=== PATIENT | female | born 1985 | race Caucasian/White ===

== ENCOUNTER 2017-12-28 17:37 | Outpatient (CLI) | payer OTHER ==
[2017-12-28 19:17] LABS: RUPTURE FETAL MEMBRANES NEGATIVE (NEGATIVE)
== END 2017-12-28 21:13 | disposition home or self-care (01) ==
LOC: OBT 17:37 → L-D 17:38 → OBT 21:13
DX: O47.00 False labor before 37 completed weeks of gestation, unspecified trimester (principal); Z3A.37 37 weeks gestation of pregnancy
CPT/HCPCS: 76817; 76818; 82731; 84112

== ENCOUNTER 2018-01-16 20:17 | Outpatient (CLI) | payer OTHER ==
[2018-01-16 22:11] LABS: ADD UMIC YES; UR ASCORBIC ACID NEGATIVE (NEGATIVE); UR BACTERIA FEW /HPF (NONE SEEN); UR BILIRUBIN (Dip) NEGATIVE (NEGATIVE); UR BLOOD (Dip) NEGATIVE (NEGATIVE); UR CLARITY SLIGHTLY CLOUDY (CLEAR); UR COLOR YELLOW (YELLOW); UR GLUCOSE (Dip) NEGATIVE (NEGATIVE); UR KETONES (Dip) NEGATIVE (NEGATIVE); UR LEUKOCYTE ESTERASE (Dip) 2+ Leu/ul (NEGATIVE); UR NITRITE (Dip) NEGATIVE (NEGATIVE); UR RBC 1 /HPF (0-5); UR SPECIFIC GRAVITY (Dip) 1.016 (1.003-1.030); UR SQUAMOUS EPITHELIAL CELL MANY /HPF (FEW); UR TOTAL PROTEIN (Dip) NEGATIVE (NEGATIVE); UR UROBILINOGEN (Dip) NEGATIVE (NEGATIVE); UR WBC 5 /HPF (0-5)
== END 2018-01-17 00:25 | disposition home or self-care (01) ==
LOC: OBT 20:17 → L-D 20:18
DX: Z3A.34 34 weeks gestation of pregnancy (principal)
CPT/HCPCS: 76817; 76818; 81001; 87086

== ENCOUNTER 2018-01-27 05:55 | Outpatient (CLI) | payer OTHER ==
[2018-01-27 07:30] LABS: ADD UMIC NO; UR ASCORBIC ACID 20 mg/dL (NEGATIVE); UR BACTERIA FEW /HPF (NONE SEEN); UR BILIRUBIN (Dip) NEGATIVE (NEGATIVE); UR BLOOD (Dip) NEGATIVE (NEGATIVE); UR CLARITY SLIGHTLY CLOUDY (CLEAR); UR COLOR YELLOW (YELLOW); UR GLUCOSE (Dip) 1+ mg/dL (NEGATIVE); UR KETONES (Dip) NEGATIVE (NEGATIVE); UR LEUKOCYTE ESTERASE (Dip) NEGATIVE Leu/ul (NEGATIVE); UR NITRITE (Dip) NEGATIVE (NEGATIVE); UR RBC 1 /HPF (0-5); UR SPECIFIC GRAVITY (Dip) 1.017 (1.003-1.030); UR SQUAMOUS EPITHELIAL CELL FEW /HPF (FEW); UR TOTAL PROTEIN (Dip) NEGATIVE (NEGATIVE); UR UROBILINOGEN (Dip) NEGATIVE (NEGATIVE); UR WBC 2 /HPF (0-5)
[2018-01-27 10:10] LABS: RUPTURE FETAL MEMBRANES NEGATIVE (NEGATIVE)
== END 2018-01-27 11:10 | disposition home or self-care (01) ==
LOC: OBT 05:55 → L-D 05:55 → OBT 11:10
DX: O36.8130 Decreased fetal movements, third trimester, not applicable or unspecified (principal); Z3A.36 36 weeks gestation of pregnancy
CPT/HCPCS: 76818; 81001; 81003; 84112; 87086

== ENCOUNTER 2018-01-29 05:50 | Outpatient (CLI) | payer OTHER | END 2018-01-29 08:10 | disposition home or self-care (01) | LOC: OBT 05:50 → L-D 05:51 → OBT 08:10 | DX: O24.419 Gestational diabetes mellitus in pregnancy, unspecified control (principal); Z3A.36 36 weeks gestation of pregnancy | CPT/HCPCS: 76818 ==

== ENCOUNTER 2018-02-05 13:30 | Outpatient (CLI) | payer OTHER | END 2018-02-05 15:15 | disposition home or self-care (01) | LOC: OBT 13:30 → L-D 13:32 → OBT 15:15 | DX: O24.419 Gestational diabetes mellitus in pregnancy, unspecified control (principal); O36.8330 Maternal care for abnormalities of the fetal heart rate or rhythm, third trimester, not applicable or unspecified; Z3A.37 37 weeks gestation of pregnancy | CPT/HCPCS: 76818; 82962 ==

== ENCOUNTER 2018-02-08 05:40 | Outpatient (CLI) | payer OTHER ==
[2018-02-08 07:25] LABS: ADD UMIC NO; UR ASCORBIC ACID NEGATIVE (NEGATIVE); UR BILIRUBIN (Dip) NEGATIVE (NEGATIVE); UR BLOOD (Dip) NEGATIVE (NEGATIVE); UR CLARITY CLEAR (CLEAR); UR COLOR YELLOW (YELLOW); UR GLUCOSE (Dip) NEGATIVE (NEGATIVE); UR KETONES (Dip) NEGATIVE (NEGATIVE); UR LEUKOCYTE ESTERASE (Dip) NEGATIVE Leu/ul (NEGATIVE); UR NITRITE (Dip) NEGATIVE (NEGATIVE); UR SPECIFIC GRAVITY (Dip) 1.016 (1.003-1.030); UR TOTAL PROTEIN (Dip) NEGATIVE (NEGATIVE); UR UROBILINOGEN (Dip) NEGATIVE (NEGATIVE)
== END 2018-02-08 08:00 | disposition home or self-care (01) ==
LOC: OBT 05:40 → L-D 05:40 → OBT 08:00
DX: O24.419 Gestational diabetes mellitus in pregnancy, unspecified control (principal); O36.8330 Maternal care for abnormalities of the fetal heart rate or rhythm, third trimester, not applicable or unspecified; Z3A.37 37 weeks gestation of pregnancy
CPT/HCPCS: 76818; 81003; 87086

== ENCOUNTER 2018-02-10 05:50 | Outpatient (CLI) | payer OTHER | END 2018-02-10 07:56 | disposition home or self-care (01) | LOC: OBT 05:50 → L-D 05:50 → OBT 07:56 | DX: O24.419 Gestational diabetes mellitus in pregnancy, unspecified control (principal); O36.8330 Maternal care for abnormalities of the fetal heart rate or rhythm, third trimester, not applicable or unspecified; Z3A.38 38 weeks gestation of pregnancy | CPT/HCPCS: 76818 ==

== ENCOUNTER 2018-02-13 14:58 | Inpatient (IN) | payer OTHER ==
[2018-02-13] MEDS: LACTATED RINGER'S 1,000 ML IV* ×2 (01:00→16:53)
[2018-02-13] MEDS ORDERED: LACTATED RINGER'S 1,000 ML IV (15:37)
[2018-02-13] MEDS ORDERED: CARBOPROST 250 MCG INJ IM (16:00)
[2018-02-13] MEDS ORDERED: OXYTOCIN 30 UNITS/LR 500 ML IV ×2 (16:00)
[2018-02-13] MEDS ORDERED: LIDOCAINE 1% (MPF) 30 ML INJ INJ (16:00)
[2018-02-13] MEDS ORDERED: BUTORPHANOL 2 MG INJ IV (16:00)
[2018-02-13] MEDS ORDERED: IBUPROFEN 600 MG TAB PO (16:00)
[2018-02-13] MEDS ORDERED: METHYLERGONOVINE 0.2 MG INJ IM (16:00)
[2018-02-13] MEDS ORDERED: BUTORPHANOL 1 MG INJ IV (16:00)
[2018-02-13] MEDS ORDERED: MISOPROSTOL 200 MCG TAB PR (16:00)
[2018-02-13 16:08] LABS: ADD MAN DIFF? NO
[2018-02-13 16:10] LABS: BASOPHILS % 0.4 % (0.0-2.0); EOSINOPHILS # 0.1 10^3/ul (0.0-0.5); EOSINOPHILS % 0.7 % (0.0-7.0); HEMATOCRIT 39.5 % (37.0-47.0); LYMPHOCYTES # 1.6 10^3/ul (0.8-2.9); LYMPHOCYTES % 14.9 % (15.0-51.0); MEAN CORPUSCULAR HEMOGLOBIN 26.2 pg (29.0-33.0); MEAN CORPUSCULAR HGB CONC 32.9 g/dl (32.0-37.0); MEAN CORPUSCULAR VOLUME 79.5 fl (82.0-101.0); MEAN PLATELET VOLUME 9.2 fl (7.4-10.4); MONOCYTE # 0.8 10^3/ul (0.3-0.9); MONOCYTES % 7.7 % (0.0-11.0); NEUTROPHIL # 8.1 10^3/ul (1.6-7.5); NEUTROPHILS % 75.6 % (39.0-77.0); PLATELET COUNT 379 10^3/UL (140-415); RED BLOOD COUNT 4.97 10^6/ul (4.20-5.40)
[2018-02-13 16:10] LABS: WHITE BLOOD COUNT 10.7 10^3/ul (4.8-10.8)
[2018-02-13 16:30] LABS: INR 0.94; PARTIAL THROMBOPLASTIN TIME 27.1 Sec (25.0-35.0); PROTIME 12.7 Sec (11.9-14.9)
[2018-02-13 16:37] LABS: GLUCOSE 81 mg/dl (70-220)
[2018-02-13] MEDS: AMPICILLIN 2 GM/NS (PMX) 100 ML IV (16:53)
[2018-02-13 16:58] LABS: HEPATITIS B SURFACE ANTIGEN NEGATIVE (NEGATIVE)
[2018-02-13] MEDS ORDERED: KETOROLAC 30 MG INJ IV (17:30)
[2018-02-13] MEDS ORDERED: FENTAnyl 2MCG/ML-ROPIV 0.2% 100 ML BAG EPI (17:30)
[2018-02-13] MEDS ORDERED: NALOXONE (0.4 MG/ML) INJ IV (17:30)
[2018-02-13] MEDS ORDERED: ONDANSETRON 4 MG INJ IV (17:30)
[2018-02-13] MEDS ORDERED: HYDROmorphONE 0.5 MG/0.5 ML SYG IV ×2 (17:30)
[2018-02-13] MEDS ORDERED: DIPHENHYDRAMINE 50 MG INJ IV (17:30)
[2018-02-13] MEDS ORDERED: ZOLPIDEM 5 MG TAB PO (17:30)
[2018-02-13 17:35] LABS: RAPID PLASMA REAGIN NONREACTIVE (NR)
[2018-02-13] MEDS: DEXTROSE 5%-LR 1,000 ML IV (20:23)
[2018-02-13] MEDS: AMPICILLIN 1 GM/NS (PMX) 50 ML IV (21:04)
[2018-02-13] MEDS: OXYTOCIN 30 UNITS/LR 500 ML IV ×2 (23:04→23:21)
[2018-02-14] MEDS ORDERED: SENNA/DOCUSATE NA (8.6MG/50MG) TAB PO
[2018-02-14] MEDS ORDERED: HYDROCODONE/APAP (5/325) TAB PO
[2018-02-14] MEDS ORDERED: CARBOPROST 250 MCG INJ IM
[2018-02-14] MEDS ORDERED: ONDANSETRON 4 MG TAB PO
[2018-02-14] MEDS ORDERED: DIBUCAINE 1% 30 GM OINT PR
[2018-02-14] MEDS ORDERED: DIPHENHYDRAMINE 25 MG CAP PO
[2018-02-14] MEDS ORDERED: MISOPROSTOL 200 MCG TAB PR
[2018-02-14] MEDS ORDERED: METHYLERGONOVINE 0.2 MG INJ IM
[2018-02-14] MEDS ORDERED: OXYTOCIN 30 UNITS/LR 500 ML IV
[2018-02-14] MEDS ORDERED: ACETAMINOPHEN 325 MG TAB PO ×2
[2018-02-14] MEDS ORDERED: NA PHOSPHATE/BIPHOS 133 ML ENEMA PR
[2018-02-14] MEDS ORDERED: DIPHENHYDRAMINE 50 MG INJ IV
[2018-02-14] MEDS ORDERED: ONDANSETRON 4 MG INJ IV
[2018-02-14] MEDS: LACTATED RINGER'S 1,000 ML IV* ×3 (03:25→21:40)
[2018-02-14] MEDS: BENZOCAINE 20% 56 ML SPRAY TOP (04:50)
[2018-02-14] MEDS: HYDROCODONE/APAP (5/325) TAB PO ×3 (04:51→19:40)
[2018-02-14] MEDS: LANOLIN 7 GM TUBE TOP (04:51)
[2018-02-14] MEDS: WITCH HAZEL/GLYCERIN PAD PR (05:30)
[2018-02-14] MEDS: IBUPROFEN 800 MG TAB PO ×4 (05:30→18:09)
[2018-02-14 08:28] LABS: ADD MAN DIFF? NO
[2018-02-14 08:35] LABS: BASOPHIL # 0.1 10^3/ul (0.0-0.1); BASOPHILS % 0.3 % (0.0-2.0); EOSINOPHILS # 0.1 10^3/ul (0.0-0.5); EOSINOPHILS % 0.4 % (0.0-7.0); HEMATOCRIT 32.9 % (37.0-47.0); HEMOGLOBIN 10.9 g/dl (12.0-16.0); LYMPHOCYTES # 2.1 10^3/ul (0.8-2.9); LYMPHOCYTES % 14.9 % (15.0-51.0); MEAN CORPUSCULAR HEMOGLOBIN 26.5 pg (29.0-33.0); MEAN CORPUSCULAR HGB CONC 33.1 g/dl (32.0-37.0); MEAN CORPUSCULAR VOLUME 79.9 fl (82.0-101.0); MEAN PLATELET VOLUME 9.6 fl (7.4-10.4); MONOCYTE # 1.1 10^3/ul (0.3-0.9); MONOCYTES % 7.7 % (0.0-11.0); NEUTROPHIL # 10.9 10^3/ul (1.6-7.5); NEUTROPHILS % 76.1 % (39.0-77.0); PLATELET COUNT 314 10^3/UL (140-415); RED BLOOD COUNT 4.12 10^6/ul (4.20-5.40)
[2018-02-14 08:35] LABS: WHITE BLOOD COUNT 14.3 10^3/ul (4.8-10.8)
[2018-02-15] MEDS: IBUPROFEN 800 MG TAB PO ×3 (00:01→12:39)
[2018-02-15] MEDS: HYDROCODONE/APAP (5/325) TAB PO (01:50)
[2018-02-15] MEDS: LACTATED RINGER'S 1,000 ML IV* (07:42)
[2018-02-15] MEDS: VARICELLA VACCINE LIVE/PF 1,350 UNIT/0.5 ML ML SC* (09:00)
[2018-02-15] MEDS: DIPHTH/TET/ACEL PERTUSS (ADULT) 0.5 ML VIAL IM* (09:00)
[2018-02-15] MEDS: MEASLES,MUMPS,RUBELLA VACCINE INJ SC* (09:00)
[2018-02-15 10:01] LABS: ADD MAN DIFF? NO
[2018-02-15 10:05] LABS: BASOPHIL # 0.1 10^3/ul (0.0-0.1); BASOPHILS % 0.5 % (0.0-2.0); EOSINOPHILS # 0.2 10^3/ul (0.0-0.5); EOSINOPHILS % 1.2 % (0.0-7.0); HEMATOCRIT 35.2 % (37.0-47.0); HEMOGLOBIN 11.1 g/dl (12.0-16.0); LYMPHOCYTES % 14.5 % (15.0-51.0); MEAN CORPUSCULAR HEMOGLOBIN 25.4 pg (29.0-33.0); MEAN CORPUSCULAR HGB CONC 31.5 g/dl (32.0-37.0); MEAN CORPUSCULAR VOLUME 80.5 fl (82.0-101.0); MEAN PLATELET VOLUME 9.3 fl (7.4-10.4); MONOCYTE # 0.8 10^3/ul (0.3-0.9); MONOCYTES % 5.8 % (0.0-11.0); NEUTROPHIL # 10.5 10^3/ul (1.6-7.5); NEUTROPHILS % 77.5 % (39.0-77.0); PLATELET COUNT 346 10^3/UL (140-415); RED BLOOD COUNT 4.37 10^6/ul (4.20-5.40); RED CELL DISTRIBUTION WIDTH 15.4 % (11.5-14.5)
[2018-02-15 10:05] LABS: WHITE BLOOD COUNT 13.6 10^3/ul (4.8-10.8)
[2018-02-15] MEDS: BENZOCAINE 20% 56 ML SPRAY TOP (10:46)
[2018-02-15] MEDS: WITCH HAZEL/GLYCERIN PAD PR (10:46)
[2018-02-15] MEDS: MAGNESIUM HYDROXIDE 30ML CUP PO (12:34)
== END 2018-02-15 14:55 | disposition home or self-care (01) | DRG 775 ==
LOC: OBT 14:58 → PP1 02-14 01:22 → L-D 14:59 → OBT 15:54 → L-D 15:26
PROVIDERS: Obstetrics & Gynecology
PROC: 10E0XZZ Delivery of Products of Conception, External Approach (ICD-10-PCS; principal; 2018-02-13)
PROC: 0HQ9XZZ Repair Perineum Skin, External Approach (ICD-10-PCS; 2018-02-13)
PROC: 4A1HXCZ Monitoring of Products of Conception, Cardiac Rate, External Approach (ICD-10-PCS; 2018-02-13)
DX: O99.824 Streptococcus B carrier state complicating childbirth (principal); O70.0 First degree perineal laceration during delivery; Z3A.38 38 weeks gestation of pregnancy; Z37.0 Single live birth
CPT/HCPCS: 62319; 76815; 82947; 82962; 85025; 85610; 85730; 86592; 86850; 86900; 86901; 87340